=== PATIENT | female | born 1960 | race African-American/Black ===

== ENCOUNTER 2021-04-18 14:57 | Emergency (ER) | payer OTHER ==
[~2021-04-18] VITALS: Ht 160 cm; Wt 77.1 kg
[2021-04-18 15:00] VITALS: BP 110/56
--- NOTE | 2021-04-18 16:09 | NUR ---
60/F biba to ED with c/o numbness and left jaw pain. Patient states she has been suffering from tinnitis for 2 months, stating today she has began experiencing jaw pain and facial numbness. Patient states she is concerned for her symptoms and wanted to be evaluated further, patient denies cp, sob, fever or chills.
[2021-04-18] MEDS ORDERED: diphenhydrAMINE 50 MG/ML VIAL IVP ONE (16:10)
[2021-04-18] MEDS ORDERED: KETOROLAC 15 MG/ML VIAL IVP ONE (16:10)
[2021-04-18] MEDS ORDERED: NACL 0.9% 1,000 ML IV ONE (16:10)
[2021-04-18 16:47] LABS: BASOPHILS % (AUTO) 0.9 % (0.0-2.0); EOSINOPHILS # (AUTO) 0.2 K/uL (0-0.4); EOSINOPHILS % (AUTO) 4.3 % (0.0-4.0); HEMATOCRIT 40.6 % (36-48); HEMOGLOBIN 13.5 g/dL (12.0-16.0); LYMPHOCYTES # (AUTO) 0.8 K/uL (2.5-16.5); LYMPHOCYTES % (AUTO) 22.7 % (20.5-51.1); MEAN CORPUSCULAR HEMOGLOBIN 32 pg (27-31); MEAN CORPUSCULAR HGB CONC 33 g/dL (33-37); MEAN CORPUSCULAR VOLUME 95.5 fL (80-94); MONOCYTES # (AUTO) 0.3 K/uL (0.8-1.0); MONOCYTES % (AUTO) 7.8 % (1.7-9.3); NEUTROPHILS # (AUTO) 2.3 K/uL (1.8-7.7); NEUTROPHILS % (AUTO) 64.3 % (42.2-75.2); PLATELET COUNT (AUTO) 234 K/uL (140-450); RED BLOOD CELL COUNT(AUTO) 4.25 MIL/uL (4.20-5.40); RED CELL DISTRIBUTION WIDTH 12.8 % (11.6-13.7); WHITE BLOOD COUNT (AUTO) 3.6 K/uL (4.8-10.8)
[2021-04-18 17:11] LABS: ALBUMIN 3.9 g/dL (3.4-5.0); ANION GAP 8.6 (8-16); CARBON DIOXIDE 30.4 mmol/L (21-32); CREATININE 1.1 mg/dL (0.6-1.3); TOTAL BILIRUBIN 0.2 mg/dL (0.0-1.0)
[2021-04-18] MEDS ORDERED: ACET-9500 PO (17:29)
[2021-04-18 18:09] VITALS: BP 138/67
== END 2021-04-18 18:00 | disposition home or self-care (01) ==
LOC: MED 14:57
DX: G43.909 Migraine, unspecified, not intractable, without status migrainosus (principal)
CPT/HCPCS: 36415; 80053; 85025; 93005; 96361; 96374; 96375; 99284; J1200; J1885; J7030

== ENCOUNTER 2022-04-29 16:40 | Emergency (ER) | payer OTHER, BC ==
[~2022-04-29] VITALS: Ht 160 cm; Wt 1.8 kg
[~2022-04-29 16:40] MED LIST: ACET-8001 PO
[2022-04-29 16:46] VITALS: BP 125/61
[2022-04-29] MEDS ORDERED: ONDANSETRON 4 MG/2 ML VIAL IVP ONE (17:10)
[2022-04-29] MEDS ORDERED: KETOROLAC 30 MG/ML VIAL IVP ONE (17:10)
[2022-04-29 17:25] LABS: BASOPHILS % (AUTO) 1.1 % (0.0-2.0); EOSINOPHILS # (AUTO) 0.3 K/uL (0-0.4); EOSINOPHILS % (AUTO) 6.7 % (0.0-4.0); HEMATOCRIT 38.2 % (36-48); LYMPHOCYTES # (AUTO) 1.5 K/uL (2.5-16.5); LYMPHOCYTES % (AUTO) 35.7 % (20.5-51.1); MEAN CORPUSCULAR HEMOGLOBIN 32 pg (27-31); MEAN CORPUSCULAR HGB CONC 34 g/dL (33-37); MEAN CORPUSCULAR VOLUME 92.4 fL (80-94); MONOCYTES # (AUTO) 0.3 K/uL (0.8-1.0); MONOCYTES % (AUTO) 7.3 % (1.7-9.3); NEUTROPHILS % (AUTO) 49.2 % (42.2-75.2); PLATELET COUNT (AUTO) 238 K/uL (140-450); RED BLOOD CELL COUNT(AUTO) 4.14 MIL/uL (4.20-5.40); WHITE BLOOD COUNT (AUTO) 4.1 K/uL (4.8-10.8)
[2022-04-29 17:26] LABS: APPEARANCE,URINE CLEAR (CLEAR); BILIRUBIN,URINE NEGATIVE (NEGATIVE); BLOOD, URINE NEGATIVE (NEGATIVE); COLOR,URINE YELLOW (YELLOW); LEUKOCYTE ESTERASE ,URINE NEGATIVE (NEGATIVE); NITRITE, URINE NEGATIVE (NEGATIVE); PH,URINE 7.5 (5.0-9.0); UGLUCOSE NEGATIVE (NEGATIVE)
--- NOTE | 2022-04-29 17:30 | NUR ---
61/F PRESENTS TO ED WITH C/O RIGHT SIDED ABDOMINAL PAIN INTERMITTENTLY X2 WEEKS AND NAUSEA TODAY. PATIENT DENIES V/D, FEVERS, CHILLS OR URINARY SYMPTOMS. PATIENT DENIES TAKING MEDS FOR SYMPTOMS, ABDOMEN SOFT, NONTENDER.
[2022-04-29 17:45] LABS: ALBUMIN 3.9 g/dL (3.4-5.0); ANION GAP 12.7 (8-16); CARBON DIOXIDE 26.3 mmol/L (21-32); TOTAL BILIRUBIN 0.3 mg/dL (0.0-1.0)
[2022-04-29] MEDS ORDERED: IBUP-2213 PO (18:26)
[2022-04-29] MEDS ORDERED: ONDA8TAB87 PO (18:26)
[2022-04-29 18:39] VITALS: BP 125/61
--- NOTE | 2022-04-29 18:39 | NUR ---
IV removed, catheter intact and site benign. Applied folded 4x4 gauze and tape to stop bleeding.
--- NOTE | 2022-04-29 18:39 | NUR ---
Patient discharged with v/s stable. Written and verbal after care instructions ABOUOT NAUSEA AND ABDOMINAL PAIN given and explained. Patient alert, oriented and verbalized understanding of instructions. Ambulatory with steady gait. All questions addressed prior to discharge. ID band removed. Patient advised to follow up with PMD. Rx of IBUPROFEN AND ZOFRAN given. Patient educated on indication of medication including possible reaction and side effects. Opportunity to ask questions provided and answered.
== END 2022-04-29 18:39 | disposition home or self-care (01) ==
LOC: MED 16:40
DX: R10.31 Right lower quadrant pain (principal); R11.0 Nausea; I10 Essential (primary) hypertension; Z90.710 Acquired absence of both cervix and uterus; Z79.899 Other long term (current) drug therapy
CPT/HCPCS: 36415; 74176; 80053; 81003; 83690; 85025; 96374; 96375; 99284; J1885; J2405

== ENCOUNTER 2023-09-03 08:06 | Emergency (ER) | payer OTHER ==
[~2023-09-03] VITALS: Ht 160 cm; Wt 86.2 kg
[~2023-09-03 08:06] MED LIST changes: +IBUP-2213 PO; +ONDA8TAB87 PO
[2023-09-03 08:19] VITALS: BP 124/52; PULSE 69; RESP 16; TEMP 98.4; O2SAT 99
[2023-09-03] MEDS ORDERED: KETOROLAC 60 MG/2 ML VIAL IM ONE (08:50)
[2023-09-03] MEDS ORDERED: IBUP-2213 PO (09:29)
[2023-09-03] MEDS ORDERED: ACET-503 PO (09:29)
[2023-09-03 09:34] VITALS: BP 124/52; PULSE 69; RESP 16; TEMP 98.4; O2SAT 99
== END 2023-09-03 09:36 | disposition home or self-care (01) ==
LOC: MED 08:06
DX: S13.4XXA Sprain of ligaments of cervical spine, initial encounter (principal); I10 Essential (primary) hypertension; Z90.710 Acquired absence of both cervix and uterus; Z79.899 Other long term (current) drug therapy; Z79.1 Long term (current) use of non-steroidal anti-inflammatories (NSAID); X58.XXXA Exposure to other specified factors, initial encounter; Y92.89 Other specified places as the place of occurrence of the external cause; Y93.89 Activity, other specified; Y99.8 Other external cause status
CPT/HCPCS: 81002; 96372; 99283; J1885

== ENCOUNTER 2024-03-12 12:01 | Emergency (ER) | payer MEDICARE, OTHER ==
[~2024-03-12] VITALS: Ht 160 cm; Wt 87.1 kg
[~2024-03-12 12:01] MED LIST changes: +ACET-503 PO
[2024-03-12 12:08] VITALS: BP 141/59; PULSE 79; RESP 18; TEMP 98.6; O2SAT 98
[2024-03-12 13:11] LABS: APPEARANCE,URINE CLEAR (CLEAR); BILIRUBIN,URINE NEGATIVE (NEGATIVE); BLOOD, URINE NEGATIVE (NEGATIVE); COLOR,URINE YELLOW (YELLOW); LEUKOCYTE ESTERASE ,URINE NEGATIVE (NEGATIVE); NITRITE, URINE NEGATIVE (NEGATIVE); PROTEIN,URINE NEGATIVE (NEGATIVE); UGLUCOSE NEGATIVE (NEGATIVE); UROBILINOGEN,URINE 0.2 EU/dL (0.2 - 1)
[2024-03-12 14:02] VITALS: BP 141/59; PULSE 79; RESP 18; TEMP 98.6; O2SAT 98
== END 2024-03-12 14:00 | disposition home or self-care (01) ==
LOC: MED 12:01
DX: R10.30 Lower abdominal pain, unspecified (principal); I10 Essential (primary) hypertension; E78.5 Hyperlipidemia, unspecified; Z90.710 Acquired absence of both cervix and uterus; Z79.899 Other long term (current) drug therapy; Z87.19 Personal history of other diseases of the digestive system
CPT/HCPCS: 81003; 99283

== ENCOUNTER 2024-04-27 20:37 | Emergency (ER) | payer MEDICARE ==
[~2024-04-27] VITALS: Ht 160 cm; Wt 83.9 kg
[2024-04-27 20:41] VITALS: BP 135/72; PULSE 89; RESP 18; TEMP 96.5; O2SAT 98
[2024-04-27] MEDS: diazePAM 5 MG TAB PO ONE (21:56)
[2024-04-27] MEDS: KETOROLAC 30 MG/ML VIAL IM ONE (21:57)
[2024-04-27 22:17] LABS: ANION GAP 11.4 (8-16); CARBON DIOXIDE 27.7 mmol/L (21-32); POTASSIUM 4.1 mmol/L (3.5-5.1)
[2024-04-27] MEDS: NACL 0.9% 1,000 ML IV ONE (23:40)
[2024-04-27 23:45] VITALS: O2SAT 98
[2024-04-27 23:48] VITALS: BP 148/77; PULSE 78; RESP 16; O2SAT 98
[2024-04-27] MEDS ORDERED: ACET500T99 PO (23:49)
== END 2024-04-28 00:22 | disposition home or self-care (01) ==
LOC: MED 20:37
DX: R25.2 Cramp and spasm (principal); I10 Essential (primary) hypertension; Z79.899 Other long term (current) drug therapy
CPT/HCPCS: 36415; 80048; 83735; 96360; 96372; 99283; J1885; J7030